=== PATIENT | male | born 1995 | race Caucasian/White ===

== ENCOUNTER 2017-09-18 20:56 | Emergency (ER) | payer SELFPAY ==
[~2017-09-18] VITALS: Ht 170.2 cm; Wt 77.1 kg
--- NOTE | 2017-09-18 20:56 | NUR ---
Patient brought in by [facility] under police custody, c/o shortness of breath. Patient was involved in a police pursuit and was tackled by police. Patient reports he has done a lot of drugs.
--- NOTE | 2017-09-18 21:06 | NUR ---
Dr. Pineda at bedside for MSE.
--- NOTE | 2017-09-18 21:15 | NUR ---
Patient medically cleared by Dr. Pineda. Patient released to police custody to [facility] Officer Alonso robertson#[id number].
[2017-09-18 21:25] VITALS: BP 112/67
== END 2017-09-18 21:20 ==
LOC: ER 20:57
DX: Z02.89 Encounter for other administrative examinations (principal); R06.00 Dyspnea, unspecified; J45.909 Unspecified asthma, uncomplicated; F17.210 Nicotine dependence, cigarettes, uncomplicated; F12.10 Cannabis abuse, uncomplicated
CPT/HCPCS: 99283; A4663